=== PATIENT | female | born 1950 | race American Indian/Alaskan Native ===

== ENCOUNTER 2018-08-08 11:51 | Day surgery (SDC) | payer MEDICARE ==
[~2018-08-08 11:51] MED LIST: NACL 0.9% 1000 ML 1,000 ML IV SCH
[2018-08-08] MEDS ORDERED: PROVENTIL IH NR (13:30)
[2018-08-08] MEDS ORDERED: WATER FOR IRRIG STERILE IR ONE (15:35)
[2018-08-08] MEDS ORDERED: DIPRIVAN 10 MG/ML IV ONE (16:15)
[2018-08-08 16:28] VITALS: BP 128/83
--- NOTE | 2018-08-08 16:29 | Operative Report ---
Operative Report Operative Report: Date of procedure: 08/08/2018 Procedure: Colonoscopy with Hot Biopsy Polypectomy, Ablation of multiple polyps. Attending physician: Raymon Chow MD Operations Consultant: Raymon Chow MD Indication: Patient is a 53-year-old female who presents for screening colonoscopy. Patient has a family history of colon cancer and a personal history of colon polyps. This colonoscopy serves to evaluate patient so that treatment may be directed based on the findings. Consent: Informed consent was obtained after advising the patient and family regarding nature of this procedure, its indications, potential benefits as well as possible complications including but not limited to bleeding perforation and adverse reaction to medication, infection as well as other cardiopulmonary complications. An informed written and verbal consent was then obtained after due opportunity was provided for questions and answers. Monitoring: Patient was monitored continuously with pulse oximetry and electrocardiographic recordings as well as blood pressure recordings. Vital signs remained stable throughout this procedure with no untoward events. Preoperative assessment: Patient was assessed immediately prior to this procedure for capacity to tolerate monitored anesthesia care and moderate sedation as well as general anesthesia. Patient's ASA classification is 2, Mallampati class is 2, Hyomental distance is 3. Instrument: Digital Allyn video colonoscope Medications: Propofol given intravenously in divided doses. For details please refer to anesthesia records. Description of procedure: Patient was placed in the left lateral decubitus position after achieving sedation, a digital rectal examination was performed following which the colonoscope was introduced into the anal verge and advanced to the cecum which was identified by the cecal valve, the appendiceal orifice, as well as by the cecal strap and direct transillumination. The colonoscope was subsequently withdrawn with careful inspection of all mucosal surfaces. Patient tolerated this procedure well and was subsequently taken to the recovery room. The following findings were noted. Findings: The cecum had substantial thick liquid stool but appeared. normal. The sigmoid colon and rectum had multiple diminutive flat polyps that were ablated. A 5 mm rectal polyp was removed by hot biopsy polypectomy. There was substantial retained stool seen. Patient had diverticula in the ascending colon and sigmoid colon. On the retroflex view at the anal verge, patient had internal hemorrhoids. Impression: Diminutive sigmoid colon and rectal polyps status post hot biopsy polypectomy and ablation. Poor colonoscopic preparation Diverticulosis. Internal hemorrhoids. Plan: Follow pathology report. High-fiber diet. Repeat colonoscopy in 1 year
--- NOTE | 2018-08-08 16:30 | Discharge Summary ---
Short Stay Discharge Plan Activity: advance as tolerated Weight Bearing Status: Weight Bear as Tolerated Diet: regular Additional Instructions: Post Sedation D/C Instructions When you return home you may resume your regular diet unless otherwise directed. -Go directly home from the hospital and rest quietly. You may resume normal activities tomorrow. -Do NOT drive, return to work, operate any machinery or make any important personal or business decisions today. -Do NOT drink any alcohol or take nerve or sleeping drugs. They add to the effects of the medicine still present in your body. DAILY FIBER W/ PLENTY OF FLUIDS FOLLOW UP WITH DR. PAGE IN 1-2 WEEKS NO ASPIRIN OR IBUPROFEN IN THE NEXT 3-4 DAYS Follow up with: PRIMARY CARE, [Primary Care Provider] - 7 Days
--- NOTE | 2018-08-08 17:43 | Anesthesia Day of Surgery ---
Anesthesia Day of Surgery - Day of Surgery Patient Examined: Yes Patient H&P Reviewed: Yes Patient is NPO: Yes
--- NOTE | 2018-08-08 17:46 | Anesthesia Consultation ---
Anesthesia Consult and Med Hx Date of service: 08/08/18 - Airway Anesthetic Teeth Evaluation: Poor ROM Head & Neck: Adequate Mental/Hyoid Distance: Adequate Mallampati Class: Class III Intubation Access Assessment: Possibly Difficult - Pre-Operative Health Status ASA Pre-Surgery Classification: ASA4 Proposed Anesthetic Plan: MAC - Pulmonary Hx Smoking: Yes COPD: Yes - Cardiovascular System Hx Hypertension: Yes (high cholesterol) Hx Heart Murmur: Yes - Endocrine Hx End Stage Renal Disease: Yes (LAST DIALYSIS SUNDAY, VAS CATH LEFT CHEST) Hx Non-Insulin Dependent Diabetes: Yes - Hematic Hx Anemia: Yes
== END 2018-08-08 11:52 | disposition home or self-care (01) ==
LOC: GIO 11:51
PROVIDERS: ATTEND Internal Medicine Gastroenterology
DX: D12.8 Benign neoplasm of rectum (principal); K57.30 Diverticulosis of large intestine without perforation or abscess without bleeding; K64.8 Other hemorrhoids; I12.0 Hypertensive chronic kidney disease with stage 5 chronic kidney disease or end stage renal disease; E11.22 Type 2 diabetes mellitus with diabetic chronic kidney disease; F17.210 Nicotine dependence, cigarettes, uncomplicated; E78.00 Pure hypercholesterolemia, unspecified; J44.9 Chronic obstructive pulmonary disease, unspecified; K21.9 Gastro-esophageal reflux disease without esophagitis; Z90.710 Acquired absence of both cervix and uterus; Z88.6 Allergy status to analgesic agent; Z79.899 Other long term (current) drug therapy; Z79.82 Long term (current) use of aspirin; Z98.890 Other specified postprocedural states; Z86.2 Personal history of diseases of the blood and blood-forming organs and certain disorders involving the immune mechanism
CPT/HCPCS: 45384; 45388; 82962; 88305; J2704; J7030